=== PATIENT | female | born 1955 | race Caucasian/White ===

== ENCOUNTER 2016-10-01 17:33 | Emergency (ER) | payer BC ==
[2016-10-01] MEDS ORDERED: NS 0.9% 1000 ML* 2,000 ML IV ONE (17:47)
[2016-10-01 18:47] LABS: Urine Bilirubin Negative (Negative); Urine Glucose Negative (Negative); Urine Nitrite Negative (Negative)
[2016-10-01 19:09] LABS: Hematocrit 41 % (35-47); Mean Corpuscular HGB Conc 35 g/dl (31-36); Mean Corpuscular Hemoglobin 32 pg (27-31); Mean Corpuscular Volume 92 fL (80-97); Mean Platelet Volume 7 um3 (7.4-10.4); Red Blood Count 4.41 10^6/ul (4.0-5.4); Red Cell Distribution Width 13 % (10.5-15); White Blood Count 10.9 10^3/ul (3.5-10.8)
[2016-10-01 19:17] LABS: Albumin 4.2 g/dL (3.2-5.2); BUN/Creatinine Ratio 9.3 (8-20); C Reactive Protein 27.08 mg/L (< 5.00); Calcium 9.3 mg/dL (8.6-10.3); EGFR African American 86.6 (>60); EGFR Non-African American 67.3 (>60); Globulin 2.6 g/dL (2-4); Potassium 3.7 mmol/L (3.5-5.0); Total Protein 6.8 g/dL (6.4-8.9)
--- NOTE | 2016-10-01 21:15 | ED ---
Meng Valerio Alok, scribed for Trevor Russell MD on 10/01/16 at 1929 . Abdominal Pain/Female - HPI Summary HPI Summary: 60F presents to the ED with LLQ sharp abd pain since 0200 last night. Pt states she feels bloated and denies vomiting. PMHx includes h/o diverticulitis 2 months ago while in [place]. Pt states her symptoms feels similar to her last episode of diverticulitis. - History of Current Complaint Chief Complaint: EDAbdPain Stated Complaint: ABD PAIN-SENT FROM [facility] Time Seen by Provider: 10/01/16 19:24 Hx Obtained From: Patient Onset/Duration: Lasting Days, Still Present Timing: Constant Severity Initially: Moderate Severity Currently: Moderate Pain Intensity: 3 Pain Scale Used: 0-10 Numeric Location: Discrete At: LLQ Character: Sharp Aggravating Factor(s): Nothing Alleviating Factor(s): Nothing Associated Signs and Symptoms: Negative: Nausea, Vomiting Allergies/Adverse Reactions: Allergies Allergy/AdvReac Type Severity Reaction Status Date / Time NSAIDs Allergy See Comment Verified 10/02/16 00:32 PMH/Surg Hx/FS Hx/Imm Hx GI History: Reports: Hx Diverticulosis Infectious Disease History: No Infectious Disease History: Denies: Traveled Outside the [place] in Last 30 Days - Family History Known Family History: Negative: Diabetes - Social History Occupation: Retired Lives: With Family Alcohol Use: Weekly Hx Substance Use: No Substance Use Type: Reports: None Hx Tobacco Use: Yes Smoking Status (MU): Former Smoker Type: Cigarettes Review of Systems Negative: Fever Positive: Abdominal Pain. Negative: Vomiting All Other Systems Reviewed And Are Negative: Yes Physical Exam Triage Information Reviewed: Yes Vital Signs On Initial Exam: Initial Vitals Temp Pulse Resp BP Pulse Ox 98.3 F 78 16 151/80 99 10/01/16 17:39 10/01/16 17:39 10/01/16 17:39 10/01/16 17:39 10/01/16 17:39 Vital Signs Reviewed: Yes Appearance: Positive: Well-Appearing, Pain Distress - mild lower abd discomfort Skin: Positive: Warm Head/Face: Positive: Normal Head/Face Inspection Eyes: Positive: ATILIO ENT: Positive: Hearing grossly normal Neck: Positive: Supple Respiratory/Lung Sounds: Positive: Breath Sounds Present Cardiovascular: Positive: RRR Abdomen Description: Positive: Soft, Other: - mild llq tenderness Bowel Sounds: Positive: Present Musculoskeletal: Positive: Strength/ROM Intact Neurological: Positive: Alert, Oriented to Person Place, Time Psychiatric: Positive: Affect/Mood Appropriate Diagnostics - Vital Signs Vital Signs Temp Pulse Resp BP Pulse Ox 10/01/16 18:57 99.8 F 79 17 136/86 99 10/01/16 17:39 98.3 F 78 16 151/80 99 - Laboratory Lab Results: Lab Results 10/01/16 10/01/16 10/01/16 Range/Units 18:33 18:47 18:47 WBC 10.9 H (3.5-10.8) 10^3/ul RBC 4.41 (4.0-5.4) 10^6/ul Hgb 14.0 (12.0-16.0) g/dl Hct 41 (35-47) % MCV 92 (80-97) fL MCH 32 H (27-31) pg MCHC 35 (31-36) g/dl RDW 13 (10.5-15) % Plt Count 204 (150-450) 10^3/ul MPV 7 L (7.4-10.4) um3 Neut % (Auto) 66.2 (38-83) % Lymph % (Auto) 25.0 (25-47) % [place] % (Auto) 6.6 (1-9) % Eos % (Auto) 1.7 (0-6) % Baso % (Auto) 0.5 (0-2) % Absolute Neuts (auto) 7.2 (1.5-7.7) 10^3/ul Absolute Lymphs (auto) 2.7 (1.0-4.8) 10^3/ul Absolute Monos (auto) 0.7 (0-0.8) 10^3/ul Absolute Eos (auto) 0.2 (0-0.6) 10^3/ul Absolute Basos (auto) 0.1 (0-0.2) 10^3/ul Absolute Nucleated RBC 0 10^3/ul Nucleated RBC % 0 Sodium 140 (133-145) mmol/L Potassium 3.7 (3.5-5.0) mmol/L Chloride 109 (101-111) mmol/L Carbon Dioxide 26 (22-32) mmol/L Anion Gap 5 (2-11) mmol/L BUN 8 (6-24) mg/dL Creatinine 0.86 (0.51-0.95) mg/dL Est GFR ( Amer) 86.6 (>60) Est GFR (Non-Af Amer) 67.3 (>60) BUN/Creatinine Ratio 9.3 (8-20) Glucose 92 (70-100) mg/dL Lactic Acid (0.5-2.0) mmol/L Calcium 9.3 (8.6-10.3) mg/dL Total Bilirubin 1.00 (0.2-1.0) mg/dL AST 14 (13-39) U/L ALT 13 (7-52) U/L Alkaline Phosphatase 50 (34-104) U/L C-Reactive Protein 27.08 H (< 5.00) mg/L Total Protein 6.8 (6.4-8.9) g/dL Albumin 4.2 (3.2-5.2) g/dL Globulin 2.6 (2-4) g/dL Albumin/Globulin Ratio 1.6 (1-3) Lipase 38 (11.0-82.0) U/L Urine Color Straw Urine Appearance Clear Urine pH 8.0 (5-9) Ur Specific [place] 1.003 L (1.010-1.030) Urine Protein Negative (Negative) Urine Ketones Negative (Negative) Urine Blood Negative (Negative) Urine Nitrate Negative (Negative) Urine Bilirubin Negative (Negative) Urine Urobilinogen Negative (Negative) Ur Leukocyte Esterase Negative (Negative) Urine Glucose Negative (Negative) 10/01/16 Range/Units 18:47 WBC (3.5-10.8) 10^3/ul RBC (4.0-5.4) 10^6/ul Hgb (12.0-16.0) g/dl Hct (35-47) % MCV (80-97) fL MCH (27-31) pg MCHC (31-36) g/dl RDW (10.5-15) % Plt Count (150-450) 10^3/ul MPV (7.4-10.4) um3 Neut % (Auto) (38-83) % Lymph % (Auto) (25-47) % [place] % (Auto) (1-9) % Eos % (Auto) (0-6) % Baso % (Auto) (0-2) % Absolute Neuts (auto) (1.5-7.7) 10^3/ul Absolute Lymphs (auto) (1.0-4.8) 10^3/ul Absolute Monos (auto) (0-0.8) 10^3/ul Absolute Eos (auto) (0-0.6) 10^3/ul Absolute Basos (auto) (0-0.2) 10^3/ul Absolute Nucleated RBC 10^3/ul Nucleated RBC % Sodium (133-145) mmol/L Potassium (3.5-5.0) mmol/L Chloride (101-111) mmol/L Carbon Dioxide (22-32) mmol/L Anion Gap (2-11) mmol/L BUN (6-24) mg/dL Creatinine (0.51-0.95) mg/dL Est GFR ( Amer) (>60) Est GFR (Non-Af Amer) (>60) BUN/Creatinine Ratio (8-20) Glucose (70-100) mg/dL Lactic Acid 1.0 (0.5-2.0) mmol/L Calcium (8.6-10.3) mg/dL Total Bilirubin (0.2-1.0) mg/dL AST (13-39) U/L ALT (7-52) U/L Alkaline Phosphatase (34-104) U/L C-Reactive Protein (< 5.00) mg/L Total Protein (6.4-8.9) g/dL Albumin (3.2-5.2) g/dL Globulin (2-4) g/dL Albumin/Globulin Ratio (1-3) Lipase (11.0-82.0) U/L Urine Color Urine Appearance Urine pH (5-9) Ur Specific [place] (1.010-1.030) Urine Protein (Negative) Urine Ketones (Negative) Urine Blood (Negative) Urine Nitrate (Negative) Urine Bilirubin (Negative) Urine Urobilinogen (Negative) Ur Leukocyte Esterase (Negative) Urine Glucose (Negative) Result Diagrams: 10/01/16 18:47 10/01/16 18:47 Lab Statement: Any lab studies that have been ordered have been reviewed, and results considered in the medical decision making process. - CT abd/pel CT CT Interpretation: Positive (See Comments) - 1. CT findings are most consistent with diverticulitis at the junction of the descending colon and sigmoid colon. 2. There is questionable circumferential thickening involving the second and third portions of the duodenum. These correlate to any signs or symptoms of duodenitis. If clinically warranted this can be further characterized with direct visualization endoscopy. 3. There are 2 4 mm hypodensities in left lobe of the liver that are too small to characterize on this CT examination. There are no prior CTs available for comparison to comment on chronicity. On a nonemergent basis is can be further characterize with ultrasound. 4. There are additional chronic and degenerative changes described in the body the report unlikely to be directly related to the patient's current presentation. CT Interpretation Completed By: Radiologist Re-Evaluation - Re-Evaluation First Eval Re-Evaluation Time: 22:55 Change: Improved - Discussed pt lab and CT results Abdominal Pain Fem Course/Dx - Diagnoses Provider Diagnoses: Diverticulitis Discharge - Discharge Plan Condition: Improved Disposition: HOME Prescriptions: Levofloxacin TAB* [Levaquin 500 Tab*] 500 mg PO DAILY #7 tab Metronidazole [Flagyl 500 MG TAB] 500 mg PO TID #20 tab Patient Education Materials: Diverticulitis (ED) Referrals: Non Staff,Doctor [Primary Care Provider] - The documentation as recorded by the Meng tai Alok accurately reflects the service I personally performed and the decisions made by , Trevor Russell MD.
[2016-10-01] MEDS ORDERED: Iohexol 300* (CONTRAST) 10 ML SDV IV ONE (21:28)
--- NOTE | 2016-10-01 22:44 | RAD ---
CLINICAL HISTORY: Left lower quadrant pain COMPARISON: None TECHNIQUE: Contrast enhanced CT examination of the abdomen and pelvis from the lung bases through the initial tuberosities. The patient received 109 mL Omnipaque 300 intravenously prior to imaging.The patient received oral contrast as well prior to imaging. FINDINGS: VISUALIZED LUNG BASES: The visualized lung bases are grossly clear. There is no pleural effusion. ABDOMEN AND PELVIS: In the left lobe of the liver there are 2 focal hypodensities measuring 4 mm in diameter that cannot be characterized further on this CT examination. There are no sinister appearing lesions. Liver is otherwise homogenous in attenuation and the surface is smooth. The spleen, pancreas and adrenal glands are grossly normal in appearance. The gallbladder is normal. The kidneys are normal in appearance without focal mass, calcification or signs of hydronephrosis. The oral contrast has progressed as far as the descending colon. There is circumferential thickening at the second portion of the duodenum measuring up to 7 mm in thickness (axial image 36). The remaining small bowel is normal in diameter and wall thickness. The mostly contrast-filled appendix is normal in appearance (coronal image 48). There are distal colonic diverticula becoming more concentrated in the distal most portions of the colon. At the junction of the descending colon and sigmoid colon there is focal wall thickening and pericolonic stranding of the mesenteric fat. There is no gross free air or drainable fluid collection. Beyond this there are rectosigmoid diverticula that do not appear acutely inflamed. There is no gross retroperitoneal or mesenteric lymphadenopathy. The pelvic viscera is normal in appearance. The abdominal aorta and iliac arteries are normal in course and diameter. Degenerative changes include multilevel loss of intervertebral disc height involving the lower thoracic and lumbar spine.There are no sinister bone lesions. IMPRESSION: 1. CT findings are most consistent with diverticulitis at the junction of the descending colon and sigmoid colon. 2. There is questionable circumferential thickening involving the second and third portions of the duodenum. These correlate to any signs or symptoms of duodenitis. If clinically warranted this can be further characterized with direct visualization endoscopy. 3. There are 2 4 mm hypodensities in left lobe of the liver that are too small to characterize on this CT examination. There are no prior CTs available for comparison to comment on chronicity. On a nonemergent basis is can be further characterize with ultrasound. 4. There are additional chronic and degenerative changes described in the body the report unlikely to be directly related to the patient's current presentation.
[2016-10-01] MEDS ORDERED: metroNIDAZOLE IV 500 MG/100ML* 500 MG/100 ML BAG IVPB ONE (22:53)
[2016-10-01] MEDS ORDERED: Levofloxacin 500 MG IVPREMIX(* 500 MG/100 ML BAG IVPB ONE (22:53)
[2016-10-02] MEDS ORDERED: oxyCODONE/Acetamin 5/325 MG* TAB PO ONE (01:38)
[2016-10-02 02:29] VITALS: BP 150/70
== END 2016-10-02 01:45 | disposition home or self-care (01) ==
LOC: ED 17:33
DX: K57.92 Diverticulitis of intestine, part unspecified, without perforation or abscess without bleeding (principal); R10.32 Left lower quadrant pain; Z87.891 Personal history of nicotine dependence
CPT/HCPCS: 36415; 74177; 80053; 81003; 83605; 83690; 85025; 86140; 99283; A9270-GY; J1956